=== PATIENT | female | born 1965 | race Caucasian/White ===

== ENCOUNTER → 2017-04-06 | Outpatient (CLI) | payer OTHER ==
[~2017-04-06] MED LIST: CETI10CA PO; CETI10TA17; CYAN100071 PO; CYCL10TA9 PO; ETHINYL ESTRADIOL; MULT-974 PO; NEBI5TAB8 PO; NORG1TAB16 PO; NORGESTIMATE; OMG1KC; RNT150T PO; TRAM-42 PO; VITA200C18
--- NOTE | 2017-04-06 19:31 | Diagnostic Imaging Report ---
Transabdominal and transvaginal pelvic ultrasound. INDICATION: Pelvic lesion seen in the right side of the pelvis based on MRI of the lumbar spine of 03/28/2017. FINDINGS: The uterus is 9.4 x 5 x 5.7 cm in size. The myometrium is slightly heterogeneous with no discrete mass seen. IUD is seen and appears to be in good position. The endometrial stripe is at the upper limits of normal in thickness at 1.6 cm. The right ovary is 3.1 x 3.8 x 3.8 cm and demonstrates a simple-appearing cyst measuring 2.6 cm which correlates with the MRI finding. Vascularity is noted with venous waveforms seen over the right ovary. The left ovary is not seen, likely obscured by bowel gas. IMPRESSION: The lesion in the right pelvis seen on MRI appears to correlate with a simple-appearing right ovarian cyst or dominant follicle. Dictated by: Dictated on workstation # [id number]
== END ==
LOC: RAD 15:25
PROVIDERS: ATTEND Family Medicine
DX: N83.9 Noninflammatory disorder of ovary, fallopian tube and broad ligament, unspecified (principal)
CPT/HCPCS: 76830; 76856

== ENCOUNTER 2018-01-25 09:00 | Outpatient (CLI) | payer OTHER ==
[~2018-01-25] VITALS: Ht 165.1 cm; Wt 95.3 kg
[2018-01-25] MEDS ORDERED: ESTR1TAB24 PO (09:02)
[2018-01-25] MEDS ORDERED: OMG1KC PO (09:02)
[2018-01-25] MEDS ORDERED: NEBI5TAB8 PO (09:02)
[2018-01-25] MEDS ORDERED: RANI150T11 PO (09:02)
[2018-01-25] MEDS ORDERED: CETI10TA17 PO (09:02)
[2018-01-25] MEDS ORDERED: NF-NORETH5 PO (09:02)
== END 2018-01-25 16:52 | disposition home or self-care (01) ==
LOC: PREOP 09:00
PROVIDERS: ATTEND Internal Medicine
DX: Z01.818 Encounter for other preprocedural examination (principal)

== ENCOUNTER 2018-01-27 07:14 | Day surgery (SDC) | payer OTHER ==
--- NOTE | 2018-01-10 13:16 | HISTORY AND PHYSICAL ---
DATE OF SERVICE: 01/27/2018 COLONOSCOPY HISTORY AND PHYSICAL HISTORY: The patient is a 52-year-old white female, referred by Dr. Tineo for her first screening colonoscopy. She was seen in the office on 01/09/2018. The patient is deemed to be of average risk for colon cancer. She is not aware of any family history for colon cancer or colon polyps. She has had no bowel habit change except for an episode of constipation following muscle relaxer for low back pain. Since that time, she has had a small amount of intermittent bright red blood per rectum, painless, small volume over the past several weeks. Energy level has been normal and she feels well. Weight has been stable. PAST MEDICAL HISTORY: Significant for hypertension and palpitations, which she reports has been under good control on Bystolic 5 mg daily. PAST SURGICAL HISTORY: Significant for breast reduction surgery 25 years ago, cholecystectomy in 2014 and 7 to 8 years ago bilateral hallux valgus surgery. FAMILY HISTORY: Father at age of 64 following surgery for diverticular disease. Mother is living at age of 76 with a history of hypertension and hypothyroidism. There is no family history for any form of malignancy that she is aware of. SOCIAL HISTORY: She is , employed with no past smoking history and rare alcohol intake. PHYSICAL EXAMINATION: GENERAL: Reveals a pleasant white female, who appears to be in no acute distress. VITAL SIGNS: Weight is 216 pounds, blood pressure 120/80, respiratory rate 16 and nonlabored. Heart rate 72 and regular. HEENT: Unremarkable. Sclerae nonicteric. NECK: Reveals no JVD, adenopathy or bruits. CHEST: Clear to auscultation. CARDIOVASCULAR: Reveals a regular rate and rhythm without murmur, S3 or S4. ABDOMEN: Soft, supple without mass or organomegaly. She does have some left lower quadrant pain to palpation without rebound or guarding. EXTREMITIES: Reveal no cyanosis, clubbing or edema. ASSESSMENT AND PLAN: The patient is set up for screening colonoscopy in early January. Due to family history of diverticular disease and some left lower quadrant discomfort to palpation, we will obtain anesthesia consultation for Diprivan administration. Prep instructions and Suprep kit were given and questions were answered. Her electronic medical record was reviewed. All in all, 45 minutes of my care time was spent with another 15 minutes of staff time setting the procedure and going over prep instructions. I thank you for the referral of this pleasant lady. Sincerely, Job ID: [id number] DocumentID: [id number] Dictated Date: 01/09/2018 16:51:30 Service Establishment Attendant Date: 01/09/2018 17:57:06 Dictated By: MARIBELL STINSON MD
[~2018-01-27] VITALS: Ht 165.1 cm; Wt 95.3 kg
[~2018-01-27 07:14] MED LIST changes: +CETI10TA17 PO; +ESTR1TAB24 PO; +NF-NORETH5 PO; +OMG1KC PO; +RANI150T11 PO
[2018-01-27] MEDS ORDERED: LACTATED RINGERS 1,000 ML IV STA (07:19)
[2018-01-27] MEDS ORDERED: LACTATED RINGERS 1,000 ML IV ONE (07:21)
[2018-01-27] MEDS ORDERED: PROPOFOL INJECTION 50 ML IV ONE (07:54)
[2018-01-27] MEDS ORDERED: MIDAZOLAM 2 MG/2 ML (VERSED) VIAL ONE (07:54)
[2018-01-27] MEDS ORDERED: LIDOCAINE JELLY 2% (XYLOCAINE) 5 ML TUBE ONE (07:58)
--- NOTE | 2018-01-27 08:00 | Pre-Op Note & Conscious Sedat ---
Pre-Operative Progress Note H&P Reviewed The H&P was reviewed, patient examined and no changes noted. Date H&P Reviewed: Jan 27, 2018 Time H&P Reviewed: 07:50 Conscious Sedation Pre-Proced ASA Class: 2 Airway Mallampati Classification: ([place]ak appropriate class) I. II. III, IV Lungs Heart ASA score ASA 1: a normal healthy patient ASA 2: a patient with a mild systemic disease (mid diabetes, controlled hypertension, obesity ASA 3: a patient with a severe systemic disease that limits activity (angina , COPD, prior Myocardial infarction) ASA 4: a patient with an incapacitating disease that is a constant threat to life (CHF, renal failure) ASA 5: a moribund patient not expected to survive 24 hrs. (ruptured aneurysm) ASA 6: a declared brain patient whose organs are being harvested. For emergent operations, add the letter E after the classification Grade 3 Sedation Plan: Analgesia, Amnesia, Plan communicated to team members, Discussed options with patient/fam, Discussed risks with patient/fam Note The patient is an appropriate candidate to undergo the planned procedure, sedation, and anesthesia. The patient immediately re-assessed prior to indication. MARIBELL STINSON MD Jan 27, 2018 08:00
[2018-01-27] MEDS ORDERED: proPOfol 200 MG/20 ML (DIPRIVAN) VIAL IV ONE (08:03)
[2018-01-27 08:18] VITALS: BP 131/86
[2018-01-27] MEDS ORDERED: LIDOCAINE JELLY 2% (XYLOCAINE) 5 ML TUBE TOP ONE (09:00)
[2018-01-27 09:05] VITALS: BP 116/74
[2018-01-27 09:40] VITALS: BP 116/74
[2018-01-27 09:55] VITALS: BP 116/74
--- NOTE | 2018-01-27 15:41 | OPERATIVE REPORT ---
DATE OF SERVICE: 01/27/2018 COLONOSCOPY SUMMARY INDICATION FOR THE PROCEDURE: Screening colonoscopy. REQUESTING PHYSICIAN: Deidra Tineo D.O. The patient was placed in the left lateral decubitus position. Prior to undergoing colonoscopy, digital rectal evaluation was performed. Anal sphincter tone was normal and the perianal reflexes intact. No abnormalities on additional inspection of the anal canal or distal rectal vault. The colonoscope was then inserted into the rectum under direct visualization and advanced to the cecum. The cecum was identified by the extent of the ileocecal valve and cecal strap. Photographic documentation was obtained. A careful inspection of the endoscope was withdrawn. The patient tolerated the procedure well under Diprivan anesthesia. FINDINGS: Bright red blood was noted in the rectum and sigmoid colon to the level of a large pedunculated friable, albeit nonulcerative polyp noted at 25 cm in the mid sigmoid colon. It was snared and removed in its entirety. It fragmented into 2 pieces, both being basketed, one piece being roughly at 1.5 cm, and the other one being roughly 2.5 cm in size. Both were submitted in their entirety. There was no evidence for remaining polyp tissue at the base and no significant blood loss from polypectomy. A diminutive 3-mm polyp was noted in the mid descending colon. It was biopsied and ablated and submitted for histopathology with no subsequent blood loss. The patient did have a moderate number of small sigmoid diverticulum and a moderate sized proximal ascending colonic diverticulum with no evidence for diverticulitis. Otherwise the transverse colon, hepatic flexure, ascending colon, and cecum were unremarkable. ASSESSMENTS: 1. Qrkp-dz-cvbazxmn diverticular disease was noted in the sigmoid colon and one moderate-sized proximal ascending diverticulum were present without evidence for diverticulitis. 2. A large friable pedunculated polyp on a short broad stalk was removed as noted above via snare. If there is no evidence for malignancy, we will be abdicating a 1-year surveillance interval, sooner if there is evidence for dysplasia or malignancy. We will await histopathology report. Thank you for the referral of this pleasant lady. Job ID: [id number] DocumentID: [id number] Dictated Date: 01/27/2018 10:22:08 Grain Elevator Agent Date: 01/27/2018 11:47:56 Dictated By: MARIBELL STINSON MD
== END 2018-01-27 10:00 | disposition home or self-care (01) ==
LOC: ENDO 07:14
PROVIDERS: ATTEND Internal Medicine
DX: Z12.11 Encounter for screening for malignant neoplasm of colon (principal); D12.4 Benign neoplasm of descending colon; D12.5 Benign neoplasm of sigmoid colon; K57.30 Diverticulosis of large intestine without perforation or abscess without bleeding; I10 Essential (primary) hypertension; R00.2 Palpitations; Z79.899 Other long term (current) drug therapy; Z83.79 Family history of other diseases of the digestive system
CPT/HCPCS: 84703

== ENCOUNTER → 2018-04-24 | Outpatient (CLI) | payer OTHER ==
[2018-04-24 15:52] LABS: ALANINE AMINOTRANSFERASE 23 U/L (0-55); ALBUMIN 4.5 GM/DL (3.2-4.5); ALKALINE PHOSPHATASE 51 U/L (40-136); BILIRUBIN,TOTAL 0.8 MG/DL (0.1-1.0); BUN/CREATININE RATIO 16; CALCIUM 9.2 MG/DL (8.5-10.1); CARBON DIOXIDE 23 MMOL/L (21-32); CHLORIDE 105 MMOL/L (98-107); CREATININE SERUM 0.82 MG/DL (0.60-1.30); GFR ESTIMATED > 60; GLUCOSE 84 MG/DL (70-105); SODIUM 138 MMOL/L (135-145); TOTAL PROTEIN 7.9 GM/DL (6.4-8.2)
--- NOTE | 2018-04-24 17:15 | Diagnostic Imaging Report ---
PROCEDURE: CT abdomen and pelvis without contrast. TECHNIQUE: Multiple contiguous axial images were obtained through the abdomen and pelvis without the use of intravenous contrast. INDICATION: Right lower quadrant and left lower quadrant pain. Post colonoscopy with polyp removed. COMPARISON: None. FINDINGS: The lung bases are clear. The heart is normal in size. There is no pericardial effusion. The liver is mildly heterogeneous, likely from fatty infiltration. No focal hepatic lesions are seen on this noncontrast exam. The spleen appears normal. The pancreas appears normal. The adrenal glands are normal. Cholecystectomy clips are noted. There is no hydronephrosis in the kidneys bilaterally. There is a simple appearing 2.5 cm cyst in the superior right kidney. The bowel loops are nondistended without evidence of obstruction. There is diverticulosis of the descending colon without findings of diverticulitis. No free fluid or free air is seen. No acute osseous abnormalities seen. There are degenerative changes in the spine. IMPRESSION: 1. Colonic diverticulosis without diverticulitis. No free fluid or free air seen. Dictated by: Dictated on workstation # [id number]
== END ==
LOC: RAD 15:15
PROVIDERS: ATTEND Family Medicine
DX: Z01.812 Encounter for preprocedural laboratory examination (principal); K57.30 Diverticulosis of large intestine without perforation or abscess without bleeding; N83.8 Other noninflammatory disorders of ovary, fallopian tube and broad ligament; N85.2 Hypertrophy of uterus; I10 Essential (primary) hypertension; E03.9 Hypothyroidism, unspecified; Z98.890 Other specified postprocedural states
CPT/HCPCS: 36415; 74176; 80053

== ENCOUNTER → 2018-04-26 | Outpatient (CLI) | payer OTHER ==
--- NOTE | 2018-04-26 21:48 | Diagnostic Imaging Report ---
INDICATION: Routine screening. COMPARISON: Prior mammograms from 04/06/2017 and 12/19/2015. EXAMINATION: 2D and 3D bilateral screening mammography was performed with CAD. FINDINGS: Scattered fibroglandular densities are identified, bilaterally. The parenchymal pattern appears stable. Right breast calcifications appear to be fairly stable. Fibronodular pattern is similar. No new mass or malignant appearing microcalcifications are seen. Axillae are unremarkable. IMPRESSION: No mammographic features suspicious for malignancy are identified. ACR BI-RADS Category 2: Benign findings. Result letter will be mailed to the patient. Note: At least 10% of breast cancer is not imaged by mammography. Dictated by: Dictated on workstation # [id number]
== END ==
LOC: RAD 13:55
PROVIDERS: ATTEND Family Medicine
DX: Z12.31 Encounter for screening mammogram for malignant neoplasm of breast (principal)
CPT/HCPCS: 77067

== ENCOUNTER 2018-05-11 07:32 | Outpatient (CLI) | payer OTHER ==
[~2018-05-11] VITALS: Ht 165.1 cm; Wt 90.7 kg
[~2018-05-11 07:32] MED LIST changes: -CHOL100048 PO; -DOCU100C37 PO; -OXYC1TAB87 PO
[2018-05-11 07:44] VITALS: BP 132/84
[2018-05-11] MEDS ORDERED: CHOL100048 PO (07:47)
[2018-05-11] MEDS ORDERED: OMG1KC PO (07:47)
== END 2018-05-11 10:13 ==
LOC: PREOP 07:32
PROVIDERS: ATTEND Obstetrics & Gynecology
DX: Z01.812 Encounter for preprocedural laboratory examination (principal); Z11.2 Encounter for screening for other bacterial diseases; N95.0 Postmenopausal bleeding; N85.2 Hypertrophy of uterus; D64.9 Anemia, unspecified
CPT/HCPCS: 86850; 86900; 86901; 87081

== ENCOUNTER → 2018-05-11 | Outpatient (CLI) | payer OTHER ==
[~2018-05-11] MED LIST changes: +CHOL100048 PO; +DOCU100C37 PO; +OXYC1TAB87 PO
[2018-05-11 08:23] LABS: BASOPHILS # (AUTO) 0.1 10^3/uL (0.0-0.1); BASOPHILS % (AUTO) 1 % (0-10); EOSINOPHILS # (AUTO) 0.2 10^3/uL (0.0-0.3); EOSINOPHILS % (AUTO) 3 % (0-10); HEMATOCRIT 45 % (35-52); HEMOGLOBIN 15.4 G/DL (11.5-16.0); LYMPHOCYTES # (AUTO) 1.6 X 10^3 (1.0-4.0); LYMPHOCYTES % (AUTO) 26 % (12-44); MEAN CORPUSCULAR HEMOGLOBIN 31 PG (25-34); MEAN CORPUSCULAR HGB CONC 35 G/DL (32-36); MEAN CORPUSCULAR VOLUME 90 FL (80-99); MEAN PLATELET VOLUME 11.6 FL (7.4-10.4); MONOCYTES # (AUTO) 0.5 X 10^3 (0.0-1.0); MONOCYTES % (AUTO) 9 % (0-12); NEUTROPHILS # (AUTO) 3.8 X 10^3 (1.8-7.8); NEUTROPHILS % (AUTO) 62 % (42-75); PLATELET COUNT 318 10^3/uL (130-400); RED BLOOD COUNT 4.99 10^6/uL (4.35-5.85); RED CELL DISTRIBUTION WIDTH 13.8 % (10.0-14.5); WHITE BLOOD COUNT 6.2 10^3/uL (4.3-11.0)
[2018-05-11 08:42] LABS: ALANINE AMINOTRANSFERASE 32 U/L (0-55); ALBUMIN 4.4 GM/DL (3.2-4.5); ALKALINE PHOSPHATASE 50 U/L (40-136); BILIRUBIN,TOTAL 1.1 MG/DL (0.1-1.0); BUN/CREATININE RATIO 17; CALCIUM 9.1 MG/DL (8.5-10.1); CARBON DIOXIDE 21 MMOL/L (21-32); CHLORIDE 106 MMOL/L (98-107); CHOLESTEROL 185 MG/DL (< 200); CREATININE SERUM 0.81 MG/DL (0.60-1.30); GFR ESTIMATED > 60; GLUCOSE 94 MG/DL (70-105); HDL CHOLESTEROL 38 MG/DL (40-60); SODIUM 138 MMOL/L (135-145); TOTAL PROTEIN 7.7 GM/DL (6.4-8.2); TRIGLYCERIDES 45 MG/DL (<150); VLDL CHOLESTEROL 9 MG/DL (5-40)
[2018-05-11 09:04] LABS: FREE T4 (FREE THYROXINE) 1.16 NG/DL (0.70-1.48)
== END ==
LOC: LAB 07:37
PROVIDERS: ATTEND Family Medicine
DX: Z00.00 Encounter for general adult medical examination without abnormal findings (principal); E03.9 Hypothyroidism, unspecified; I10 Essential (primary) hypertension; R10.9 Unspecified abdominal pain
CPT/HCPCS: 36415; 80053; 80061; 84439; 84443; 85025

== ENCOUNTER 2018-05-17 11:06 | Day surgery (SDC) | payer OTHER ==
--- NOTE | 2018-04-28 04:53 | HISTORY AND PHYSICAL ---
DATE OF SERVICE: PREOPERATIVE HISTORY AND PHYSICAL HISTORY OF PRESENT ILLNESS: The patient is a 53-year-old nulligravid white female, who had an MRI done and workup for back pain. She was noted to have an ovarian cyst and an exceedingly thick endometrial lining in spite of having a Mirena in the uterine cavity. She was having some spotting or breakthrough bleeding. She had begun bleeding like a period a week prior to presentation. 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 She had no problem with her bowel or bladder. She was taking estradiol and Provera for hormone replacement therapy since going through menopause. ALLERGIES: NONSTEROIDAL ANTI-INFLAMMATORIES, which cause hives and swelling. PAST MEDICAL HISTORY: Hypertension and history of angioedema. PAST SURGICAL HISTORY: Included a cholecystectomy and a bunionectomy in 2014. Cataract surgery in 2015. Breast reduction in 1997. OB HISTORY: Negative with a Pap smear in 2016. FAMILY HISTORY: Noncontributory. SOCIAL HISTORY: The patient is single. She is a nurse in the operating room. She denies drugs and tobacco use. She does drink occasionally socially. REVIEW OF SYSTEMS: As per the HPI. PHYSICAL EXAMINATION: HEENT: Normal. NECK: Supple, no lymphadenopathy and no thyromegaly. ABDOMEN: Soft, nontender, nondistended and mildly obese. EXTREMITIES: Show no clubbing or cyanosis. PELVIC: Deferred to the operating room. LABORATORY DATA: The patient's workup has included an endometrial biopsy, which showed weakly proliferative endometrium. Her ultrasound performed in clinic showed an irregular endometrial lining with a significant amount of fluid present in the endometrial cavity. The uterus was bulky and consistent with adenomyosis versus fibroids. The ovaries were quiet. ASSESSMENT AND PLAN: Postmenopausal bleeding in spite of hormone replacement therapy with the finding of an irregularly thickened endometrial cavity and questionable ovarian cyst. The patient has opted for definitive surgical treatment in the form of hysterectomy with bilateral salpingo-oophorectomy. The surgery has been scheduled for 05/17/2018. Surgical risks, complication, recovery and follow up have been fully discussed. All of her questions have been answered and she is prepared to proceed with that surgery. Job ID: [id number] DocumentID: [id number] Dictated Date: 04/25/2018 08:07:13 Tour Escort Date: 04/25/2018 08:44:06 Dictated By: SOMMER SALVADOR MD
[~2018-05-17] VITALS: Ht 165.1 cm; Wt 90.7 kg
[~2018-05-17 11:06] MED LIST changes: +CHOL100048 PO
[2018-05-17] MEDS ORDERED: ceFAZolin 1,000 MG/10 ML (ANCEF) VIAL ONE (11:30)
[2018-05-17] MEDS ORDERED: NS (IVPB) 50 ML ONE (11:31)
[2018-05-17] MEDS ORDERED: D5 LR IV SOLUTION 1,000 ML IV SCH (12:17)
[2018-05-17] MEDS ORDERED: ceFAZolin INJECTION 1,000 MG in NS (IVPB) 50 ML IV ONE (12:30)
[2018-05-17] MEDS ORDERED: ESTROGENS CONJ IV 25 MG/5 ML (PREMARIN) VIAL IVP ONE (12:30)
[2018-05-17] MEDS ORDERED: PROMETHAZINE INJ 25 MG/ML (PHENERGAN) AMP IM PRN (12:30)
[2018-05-17] MEDS ORDERED: ONDANSETRON 4 MG/2 ML (SDV) Z0FRAN IVP PRN (12:30)
[2018-05-17] MEDS ORDERED: MEPERIDINE (DEMEROL) INJ 100 MG/ML IM PRN (12:30)
[2018-05-17] MEDS ORDERED: WATER (STERILE) FOR INJ 10 ML BTL INJ ONE (12:30)
[2018-05-17] MEDS ORDERED: BUP/EPI 0.5% 1:200,000 (SENSORCAINE) 30 ML VIAL ONE (12:42)
[2018-05-17] MEDS ORDERED: fentaNYL INJECTION 100 MCG/2 ML AMP ONE ×2 (12:45→13:15)
[2018-05-17] MEDS ORDERED: MIDAZOLAM 2 MG/2 ML (VERSED) VIAL ONE (12:46)
[2018-05-17] MEDS: LACTATED RINGERS 1,000 ML IV PRN ×2 (12:49→13:30)
--- NOTE | 2018-05-17 12:49 | Progress Note-Pre Operative ---
Pre-Operative Progress Note H&P Reviewed The H&P was reviewed, patient examined and no changes noted. Date Seen by Provider: May 17, 2018 Time Seen by Provider: 12:48 Date H&P Reviewed: May 17, 2018 Time H&P Reviewed: 12:48 Pre-Operative Diagnosis: DUB/CPP/Menorrhagia/Pelvic mass SOMMER SALVADOR MD May 17, 2018 12:49
--- NOTE | 2018-05-17 12:50 | Progress Note-Post Operative ---
Post-Operative Progess Note Surgeon (s)/Assistant Superintendent (s) Surgeon SOMMER SALVADOR MD Assistant Superintendent: Chula Morrison Pre-Operative Diagnosis DUB/CPP/Menorrhagia/Pelvic mass Post-Operative Diagnosis Same with pathology pending Procedure & Operative Findings Date of Procedure 05/17/18 Procedure Performed/Findings TL H with BSO and with cystoscopy Anesthesia Type GETA Estimated Blood Loss Estimated blood loss (mL): Minimal Specimens/Packing Specimens Removed Uterus fallopian tubes and ovaries Packing: SOMMER Salcedo MD May 17, 2018 12:50
[2018-05-17] MEDS ORDERED: DOCU100C37 PO (12:54)
[2018-05-17] MEDS ORDERED: ESTR1TAB24 PO (12:54)
[2018-05-17] MEDS ORDERED: OXYC1TAB87 PO (12:54)
--- NOTE | 2018-05-17 12:55 | Discharge Instructions ---
Discharge Instructions Patient Instructions Patient Instructions: As directed Return to The Hospital For: as directed Activity & Diet Discharge Diet: No Restrictions Activity as Tolerated: No Orders-Post D/C & Referrals Follow Up Appt: Return to clinic on May 19 at 930 a.m. for staple removal Call to make follow up appt. for patient in 4 weeks. Activity: Rest for 24 hours, than as tolerated. Wound Care: May remove Band-Aid tomorrow. Replace as desired. Keep incisions clean and dry. Wash daily with soap and water. Please call in RX to patient pharmacy. Diet: As tolerated-Clear Liquids only if nauseated. Tomorrow, may shower or tub bathe as desired. No driving for 24 hours, no alcoholic beverages for 24 hours, and nothing per vagina (no tampons, douching, or intercourse) for 8 weeks. Patient to return to the clinic as soon as possible for: Temperature greater than 101F, Severe Pain, Foul discharge from incision or vagina, Excessive Bleeding (more than a period). SOMMER SALVADOR MD May 17, 2018 12:55
[2018-05-17] MEDS ORDERED: proPOfol 200 MG/20 ML (DIPRIVAN) VIAL IV ONE (14:16)
[2018-05-17] MEDS ORDERED: ONDANSETRON 4 MG/2 ML (SDV) Z0FRAN ONE (14:16)
[2018-05-17] MEDS ORDERED: SEVOFLURANE (ULTANE) 15 ML INHAL SOLN ONE ×5 (14:16→14:35)
[2018-05-17] MEDS ORDERED: DEXAMETHASONE 10 MG/ML (DECADRON) 1 ML VIAL ONE (14:16)
[2018-05-17] MEDS ORDERED: LIDOCAINE PF 2% 5 ML (XYLOCAINE) VIAL ONE (14:16)
[2018-05-17] MEDS ORDERED: ROCURONIUM 10 MG/ML 5 ML SYRINGE IV ONE (14:16)
[2018-05-17] MEDS ORDERED: INDIGO CARMINE 8 MG/ML 5 ML AMP ONE (14:22)
[2018-05-17] MEDS ORDERED: FUROSEMIDE 40 MG/4 ML INJ (LASIX) ONE (14:22)
[2018-05-17] MEDS ORDERED: PROMETHAZINE INJ 25 MG/ML (PHENERGAN) AMP ONE (15:10)
[2018-05-17] MEDS ORDERED: HYDROmorphone 2 MG/ML VIAL (DILAUDID) ONE (15:10)
[2018-05-17] MEDS ORDERED: fentaNYL INJECTION 100 MCG/2 ML AMP IVP ONE (15:15)
[2018-05-17] MEDS ORDERED: morphine INJ 10 MG/ML 1ML (SYR OR VIAL) IVP ONE (15:15)
[2018-05-17] MEDS ORDERED: HYDROmorphone 2 MG/ML VIAL (DILAUDID) IV ONE (15:15)
[2018-05-17] MEDS ORDERED: PROMETHAZINE INJ 25 MG/ML (PHENERGAN) AMP IVP ONE (15:15)
--- NOTE | 2018-05-17 15:56 | Anesthesia-General Post-Op ---
General Patient Condition Mental Status/LOC: Same as Preop Cardiovascular: Satisfactory Nausea/Vomiting: Absent Respiratory: Satisfactory Pain: Controlled Complications: Absent Post Op Complications Complications None Follow Up Care/Instructions Patient Instructions None needed. Anesthesia/Patient Condition Patient Condition Patient is doing well, no complaints, stable vital signs, no apparent adverse anesthesia problems. SARAH JACINTO DO May 17, 2018 15:56
[2018-05-17 16:00] VITALS: BP 145/95
[2018-05-17] MEDS ORDERED: D5 LR IV SOLUTION 1,000 ML IV ONE (16:08)
[2018-05-17] MEDS ORDERED: diphenhydrAMINE 50 MG/ML INJ (BENADRYL) IVP PRN (16:30)
[2018-05-17] MEDS ORDERED: diphenhydrAMINE 50 MG/ML INJ (BENADRYL) ONE (16:34)
[2018-05-17] MEDS: oxyCODONE/APAP 5/325MG (PERCOCET 5) TABLET PO PRN ×2 (18:23→22:45)
[2018-05-17 20:13] VITALS: BP 127/76
--- NOTE | 2018-05-17 23:48 | OPERATIVE REPORT ---
DATE OF SERVICE: 05/17/2018 PREOPERATIVE DIAGNOSES: Dysfunctional uterine bleeding, chronic pelvic pain, pelvic mass and menorrhagia. POSTOPERATIVE DIAGNOSES: Dysfunctional uterine bleeding, chronic pelvic pain, pelvic mass and menorrhagia with likely endometriosis. OPERATIVE PROCEDURE: Total laparoscopic hysterectomy, bilateral salpingo-oophorectomy and with cystoscopy. OPERATIVE DESCRIPTION: With the patient in supine position under satisfactory general anesthesia, she was prepped and draped in the usual fashion for abdominal and vaginal surgery after being repositioned in dorsal lithotomy position in the [facility] preoperatively for laparoscopic abdominal surgery and for vaginal surgery using robotic assistance. Bernal catheter was placed in the urinary bladder. Weighted speculum placed in posterior fornix of vagina, cervix exposed and grasped anteriorly with single tooth tenaculum. Uterus was sounded to 12.5 cm with uterine sound. Cervix then serially dilated with Chadd dilators to accommodate a Debora II manipulator, which was placed using a 6 mm x 8 cm uterine probe and a 30 mm colpotomy ring. Sutures of #1 Vicryl placed at 3 and 9 o'clock position of the cervix to affix the uterus to the manipulator. The patient was brought in low dorsal lithotomy position after the speculum and tenaculum were removed. A 12 mm incision was made 4 cm superior to the umbilicus. An attempt was made to place a Veress needle where that was unsuccessful. Two additional attempts were made to place the Veress needle at the umbilicus and that was unsuccessful, so a final attempt was at the Temple's point, which was successful. The abdomen was insufflated with 2.4 liters of carbon dioxide and the Veress needle was removed and a 12 mm Optiview laparoscopic port placed through the supraumbilical incision. The patient was placed in Trendelenburg allowing the bowel to spill partially above the pelvis. The 8 mm ports were placed through incisions of those sizes 9 cm lateral to the umbilicus. All incision sites were infiltrated with 0.25% Marcaine with epinephrine prior to incision. The patient was placed in steep Trendelenburg allowing the bowel to spill out of the pelvis. The da Andreas column was advanced on the patient and docked and then the procedure was initiated. I retired to the console after placing the operative instruments in the right and left lateral ports. With the vessel sealer on the right and a bipolar fenestrated grasper on the left, the pelvis was first examined. There was some evidence of endometriosis. Both ovaries were atretic appearing. The tubes were normal. The uterus was quite large, quite mottled and quite boggy consistent with adenomyosis and/or endometriosis or both. Laparoscope was rotated. The appendix was not readily apparent behind loops of small bowel. The laparoscope was brought back to the pelvis. The procedure was initiated by grasping and elevating the right tube and ovary. The right ureter could not seemed to peristalse through the peritoneum, so after dividing the IP ligament and the mesovarium, the round ligament, the broad ligament and finally the cardinal ligament on the right, the peritoneal leaves were opened on the right then allowed for dissection down to the ureter where it was retracted medially on the leaf of the broad ligament. It was seemed to peristalse there. Attention was now turned to the left pelvis. The left ureter could seemed to peristalse deep in the left pelvis with some difficulty. The left adnexa was treated in the same manner as the right. There were some adhesions on the left pelvic brim that were taken down and then the left tube and ovary round ligament obstructed tube and ovary were free in the same manner as the right. The leaves of the broad ligament were left open on the left to allow for direct visualization of the ureter, which was accomplished and then attention was turned to the anterior lower uterine segment using a monopolar shear in place of the vessel sealer. The anterior lower uterine segment peritoneum was divided. The bladder was carefully dissected down off lower uterine segment and colpotomy incision was started at the 12 o'clock position on the cervix that was continued circumferentially until the entire colpotomy was exposed. The uterus and extracted through the vagina with some difficulty as the uterus was quite large relative to the vagina. With the uterus removed the vaginal cuff was closed with two sutures of V-Loc barbed suture starting first from the right angle and continuing almost to the left and then from the left angle and finishing that closure and then reperitonealizing the cuff with the balance of the suture. Care was taken during sure inclusion of the uterine vessel pedicles on each side. The right ureter still seemed same peristalse behind leaf of the broad ligament. The left ureter could not easily be seen. Decision was made to go ahead with cystoscopy as I was comfortable that the ureters were intact. The procedure was terminated at this point, the operative instruments were removed under direct vision as were the ports. The abdomen was evacuated of insufflating gas in process of removing the ports. The skin incisions were stapled that the fascia was closed with a supraumbilical incision with cktktr-af-dilbe suture of 2-0 Vicryl. Speculum was placed in the vagina. There was some pulsatile bleeding on the midportion of the vaginal cuff. This was controlled with isrcxi-js-yoaxm suture of 2-0 Vicryl and they were two separations in the hymenal ring that were bleeding as well. These were sutured with isurzn-kk-hpbic sutures of 2-0 Vicryl complete hemostasis. Now, the patient had been given an amp of indigo carmine and 10 mg of Lasix just prior to finish the laparoscopic portion of procedure. The cystoscope was introduced and using an angled lens the right ureter orifice was seen easily and efflux was quickly noted. The left ureter orifice was then visualized and free efflux was noted on repeated inspection on that side. The procedure was terminated at this point. The Bernal catheter was replaced in the urinary bladder and left to dependent drainage. Sponge and needle counts correct. Estimated blood loss was minimal. The patient tolerated the procedure well and was uneventfully awakened from her general anesthesia and transferred to recovery room in stable condition with plans for routine postoperative care. Job ID: [id number] DocumentID: [id number] Dictated Date: 05/17/2018 14:52:22 Receptionist Clerk Date: 05/17/2018 23:47:12 Dictated By: SOMMER SALVADOR MD
[2018-05-18 00:28] VITALS: BP 109/69
[2018-05-18] MEDS: oxyCODONE/APAP 5/325MG (PERCOCET 5) TABLET PO PRN (04:52)
[2018-05-18 04:55] VITALS: BP 114/66
--- NOTE | 2018-05-18 08:03 | Progress Note-Standard ---
Standard Progress Note Progress Notes/Assess & Plan Date Seen by a Provider: May 18, 2018 Time Seen by a Provider: 08:02 Progress/Assessment & Plan This patient is without complaint. She is ambulating, voiding, tolerating oral intake well has to pain control and is requesting discharge home. Signs are stable. Patient is afebrile. Vital Signs 05/18/18 04:55 Temp 97.3 Pulse 72 Resp 18 B/P (MAP) 114/66 (82) Pulse Ox 98 O2 Delivery Room Air The abdomen is benign. Extremities show no clubbing cyanosis. There is no Homans sign. Assessment and plan postoperative day number 1 doing well plan is for discharge home clinic Final Diagnosis Dysfunction uterine bleeding/menorrhagia/chronic pelvic pain SOMMER SALVADOR MD May 18, 2018 08:03
[2018-05-18] MEDS ORDERED: ESTRADIOL 1 MG TAB (ESTRACE) PO SCH (09:00)
[2018-05-18] MEDS ORDERED: DOCUSATE SODIUM 100 MG (COLACE) CAP PO SCH (09:00)
[2018-05-18] MEDS ORDERED: BENZOCAINE/MENTHOL (DERMOPLAST) 56 ML CAN TP ONE (09:13)
[2018-05-18 09:17] VITALS: BP 132/77
== END 2018-05-18 09:33 | disposition home or self-care (01) ==
LOC: SDC 11:06 → WS 16:05 → SDC 05-18 09:33
PROVIDERS: ATTEND Obstetrics & Gynecology
DX: N95.0 Postmenopausal bleeding (principal); N80.0 Endometriosis of uterus; D25.9 Leiomyoma of uterus, unspecified; N72 Inflammatory disease of cervix uteri; I10 Essential (primary) hypertension; Z79.890 Hormone replacement therapy
CPT/HCPCS: 84703; 86850; 86900; 86901; 94664

== ENCOUNTER → 2019-07-25 | Outpatient (CLI) | payer OTHER ==
[~2019-07-25] MED LIST changes: +DOCU100C37 PO; +OXYC1TAB87 PO
--- NOTE | 2019-07-26 09:06 | Diagnostic Imaging Report ---
INDICATION: Routine screening. Comparison is made prior mammogram from 04/26/2018 and 04/06/2017. 2-D and 3-D bilateral screening mammography was performed with a Computer Aided Detection (CAD) system. 3-D tomosynthesis was also performed and reviewed. FINDINGS: Scattered fibroglandular densities are identified bilaterally. There are scattered benign calcifications bilaterally. There is a rounded density in the upper right breast posterior depth best seen on MLO view which appears new since prior exam. This may be laterally located. Additional views are recommended. Axillae are unremarkable. IMPRESSION: Right breast nodular density. Additional views recommended for further evaluation. ACR BI-RADS Category 0: Incomplete. (Needs additional imaging evaluation). Result letter will be mailed to the patient. Note: At least 10% of breast cancer is not imaged by mammography. Dictated by: Dictated on workstation # [id number]
== END ==
LOC: RAD 15:17
PROVIDERS: ATTEND Family Medicine
DX: Z12.31 Encounter for screening mammogram for malignant neoplasm of breast (principal); R92.8 Other abnormal and inconclusive findings on diagnostic imaging of breast
CPT/HCPCS: 77067

== ENCOUNTER → 2019-08-08 | Outpatient (CLI) | payer OTHER ==
--- NOTE | 2019-08-08 15:57 | Diagnostic Imaging Report ---
INDICATION: Right breast density. Patient presented for additional views. COMPARISON: Correlation is made with the recent screening study from 07/25/2019 as well as prior mammograms dating back to 2016. EXAMINATION: Unilateral right 2D and 3D diagnostic mammography was performed. This includes exaggerated CC and conventional 90 degree lateral views as well as spot compression ML and exaggerated CC views. FINDINGS: There is some minimal residual nodularity in the far posterior right breast. This appears to be in the outer portion based off of the tomographic images. This may represent a small cyst or intraparenchymal lymph node. This is approximately 11-13 cm from the nipple. Further evaluation with ultrasound is recommended. No other abnormality is seen. IMPRESSION: Persistent benign-appearing nodular density in the upper outer far posterior right breast. Further evaluation with ultrasound is recommended and will be performed today. ACR BI-RADS Category 0: Incomplete. (Needs additional imaging evaluation). Result letter will be mailed to the patient. Note: At least 10% of breast cancer is not imaged by mammography. Dictated by: Dictated on workstation # [id number]
--- NOTE | 2019-08-08 16:00 | Diagnostic Imaging Report ---
INDICATION: Right breast density. COMPARISON: Correlation is made with the diagnostic mammogram performed earlier this same day and the screening mammogram from 07/25/2019. TECHNIQUE: Sonographic interrogation of the upper outer right breast was performed. FINDINGS: There is a simple appearing cyst at the 9 o'clock location of the right breast approximately 10 cm from the nipple measuring 7 mm x 4 mm x 4 mm. This likely accounts for the density noted mammographically. No solid masses are detected. IMPRESSION: Simple cyst at the 9 o'clock location of the right breast, likely accounting for the mammographic density. The patient may return to routine annual screening mammography. ACR BI-RADS Category 2: Benign findings. Dictated by: Dictated on workstation # [id number]
== END ==
LOC: RAD 14:20
PROVIDERS: ATTEND Family Medicine
DX: N60.01 Solitary cyst of right breast (principal)

== ENCOUNTER → 2020-01-09 | Outpatient (CLI) | payer OTHER ==
[2020-01-11 13:01] LABS: MEAN CORPUSCULAR HEMOGLOBIN 30 PG (25-34); WHITE BLOOD COUNT 7.4 10^3/uL (4.3-11.0)
[2020-01-11 13:02] LABS: BASOPHILS % (AUTO) 1 % (0-10); EOSINOPHILS % (AUTO) 2 % (0-10); HEMATOCRIT 45 % (35-52); LYMPHOCYTES % (AUTO) 25 % (12-44); MEAN CORPUSCULAR HGB CONC 34 G/DL (32-36); MEAN CORPUSCULAR VOLUME 90 FL (80-99); MEAN PLATELET VOLUME 10.6 FL (7.4-10.4); MONOCYTES % (AUTO) 9 % (0-12); NEUTROPHILS % (AUTO) 63 % (42-75); PLATELET COUNT 321 10^3/uL (130-400); RED CELL DISTRIBUTION WIDTH 13.3 % (10.0-14.5)
[2020-01-11 13:03] LABS: BASOPHILS # (AUTO) 0.1 10^3/uL (0.0-0.1); EOSINOPHILS # (AUTO) 0.2 10^3/uL (0.0-0.3); LYMPHOCYTES # (AUTO) 1.9 X 10^3 (1.0-4.0); MONOCYTES # (AUTO) 0.7 X 10^3 (0.0-1.0); NEUTROPHILS # (AUTO) 4.7 X 10^3 (1.8-7.8)
[2020-01-11 13:16] LABS: SODIUM 140 MMOL/L (135-145)
[2020-01-11 13:17] LABS: BUN/CREATININE RATIO 19; CALCIUM 9.4 MG/DL (8.5-10.1); CARBON DIOXIDE 25 MMOL/L (21-32); CHLORIDE 106 MMOL/L (98-107); CREATININE SERUM 0.78 MG/DL (0.60-1.30); GFR ESTIMATED > 60; GLUCOSE 100 MG/DL (70-105); POTASSIUM 4.1 MMOL/L (3.6-5.0)
[2020-01-11 13:18] LABS: ALANINE AMINOTRANSFERASE 20 U/L (0-55); ALBUMIN 4.1 GM/DL (3.2-4.5); ALKALINE PHOSPHATASE 66 U/L (40-136); BILIRUBIN,TOTAL 0.6 MG/DL (0.1-1.0); CHOLESTEROL 188 MG/DL (< 200); FREE T4 (FREE THYROXINE) 0.91 NG/DL (0.70-1.48); HDL CHOLESTEROL 58 MG/DL (40-60); TOTAL PROTEIN 7.7 GM/DL (6.4-8.2); TRIGLYCERIDES 61 MG/DL (<150); VLDL CHOLESTEROL 12 MG/DL (5-40)
== END ==
LOC: LAB 08:34
PROVIDERS: ATTEND Family Medicine
DX: Z00.00 Encounter for general adult medical examination without abnormal findings (principal); I10 Essential (primary) hypertension; E04.1 Nontoxic single thyroid nodule; R53.83 Other fatigue; Z83.3 Family history of diabetes mellitus
CPT/HCPCS: 36415; 80053; 80061; 83036; 84439; 84443; 84480; 85025

== ENCOUNTER 2020-11-11 15:56 | Outpatient (RCR) | payer OTHER | END 2020-12-16 | disposition home or self-care (01) | PROVIDERS: ATTEND Nurse Practitioner | DX: M76.62 Achilles tendinitis, left leg (principal) ==

== ENCOUNTER → 2021-01-27 | Outpatient (CLI) | payer OTHER ==
--- NOTE | 2021-01-27 16:50 | Diagnostic Imaging Report ---
INDICATION: Routine screening. COMPARISON: 07/25/2019 and 04/26/2018. TECHNIQUE: 2D and 3D bilateral screening mammography was performed with CAD. FINDINGS: Scattered fibroglandular densities are identified bilaterally. There are numerous circumscribed nodules waxing and waning in size in both breasts, suggestive of cysts. Scattered benign calcifications are noted as well. No spiculated mass or malignant-appearing microcalcifications are seen. The axillae are unremarkable. IMPRESSION: No mammographic features suspicious for malignancy are identified. ACR BI-RADS Category 2: Benign findings. Result letter will be mailed to the patient. Note: At least 10% of breast cancer is not imaged by mammography. Dictated by: Dictated on workstation # [id number]
== END ==
LOC: RAD 15:30
PROVIDERS: ATTEND Family Medicine
DX: Z12.31 Encounter for screening mammogram for malignant neoplasm of breast (principal)
CPT/HCPCS: 77063; 77067

== ENCOUNTER → 2021-02-12 | Outpatient (CLI) | payer OTHER ==
[2021-02-12 06:55] LABS: BASOPHILS # (AUTO) 0.1 10^3/uL (0.0-0.1); BASOPHILS % (AUTO) 1 % (0-10); EOSINOPHILS # (AUTO) 0.3 10^3/uL (0.0-0.3); EOSINOPHILS % (AUTO) 4 % (0-10); HEMATOCRIT 45 % (35-52); LYMPHOCYTES # (AUTO) 2.2 10^3/uL (1.0-4.0); LYMPHOCYTES % (AUTO) 30 % (12-44); MEAN CORPUSCULAR HEMOGLOBIN 30 pg (25-34); MEAN CORPUSCULAR HGB CONC 33 g/dL (32-36); MEAN CORPUSCULAR VOLUME 91 fL (80-99); MEAN PLATELET VOLUME 10.5 fL (9.0-12.2); MONOCYTES # (AUTO) 0.6 10^3/uL (0.0-1.0); MONOCYTES % (AUTO) 9 % (0-12); NEUTROPHILS # (AUTO) 4.1 10^3/uL (1.8-7.8); NEUTROPHILS % (AUTO) 56 % (42-75); PLATELET COUNT 306 10^3/uL (130-400); WHITE BLOOD COUNT 7.3 10^3/uL (4.3-11.0)
[2021-02-12 07:36] LABS: ALBUMIN 3.9 GM/DL (3.2-4.5); BILIRUBIN,TOTAL 0.7 MG/DL (0.1-1.0); CALCIUM 9.3 MG/DL (8.5-10.1); CREATININE SERUM 0.77 MG/DL (0.60-1.30); POTASSIUM 4.8 MMOL/L (3.6-5.0); TOTAL PROTEIN 7.5 GM/DL (6.4-8.2)
== END ==
LOC: SDC 06:35
PROVIDERS: ATTEND Family Medicine
DX: Z00.00 Encounter for general adult medical examination without abnormal findings (principal); Z13.6 Encounter for screening for cardiovascular disorders; I10 Essential (primary) hypertension
CPT/HCPCS: 36415; 80053; 80061; 84439; 84443; 85025

== ENCOUNTER → 2021-07-17 | Outpatient (REF) ==
--- NOTE | 2021-07-17 11:22 | Diagnostic Imaging Report ---
Indication: Back injury from slipping on ice AP lateral views of lumbar spine shows mild degenerative disc change with disc space narrowing at L3-L4. The other disc levels are unremarkable. There is no fracture. Alignment is normal. IMPRESSION: Mild degenerative disc changes L3-L4. No acute abnormality seen. Dictated by: Dictated on workstation # [id number]
--- NOTE | 2021-07-17 11:23 | Diagnostic Imaging Report ---
Indication: Neck injury from a fall Cervical spine AP lateral views of the cervical spine shows normal vertebral body height and alignment. There is disc space narrowing C4-C5, C5-C6 and C6-C7. There are some hypertrophic changes of the uncovertebral joints at C3-C4. IMPRESSION: Degenerative changes of the cervical spine. No fracture or acute abnormality seen. Dictated by: Dictated on workstation # [id number]
== END ==
LOC: OCC 09:12
PROVIDERS: ATTEND Family Medicine
DX: M47.816 Spondylosis without myelopathy or radiculopathy, lumbar region (principal); M47.812 Spondylosis without myelopathy or radiculopathy, cervical region
CPT/HCPCS: 72040; 72100

== ENCOUNTER → 2022-07-29 | Outpatient (CLI) | payer OTHER ==
--- NOTE | 2022-07-29 18:12 | Diagnostic Imaging Report ---
3D bilateral screening mammogram with CAD. This study was compared to the prior exams of 01/27/2021, 07/25/2019 and 04/26/2018. At this time there are no current complaints. The fibroglandular tissue in both breasts is heterogeneously dense. This does limit the sensitivity of this exam. The waxing and waning nodules in both breasts suggesting cysts seen previously are again visualized. This includes the dense nodule in the retroareolar region of the right breast at middle depth. There is no primary or secondary sign of malignancy noted. Impression: 1. There is no evidence for malignancy. 2. The patient should have her annual bilateral screening mammogram on schedule in July of 2023. ACR BI-RADS Category 1: Negative. Result letter will be mailed to the patient. Note: At least 10% of breast cancer is not imaged by mammography. Dictated by: Dictated on workstation # [id number]
== END ==
LOC: RAD 15:07
PROVIDERS: ATTEND Family Medicine
DX: Z12.31 Encounter for screening mammogram for malignant neoplasm of breast (principal)
CPT/HCPCS: 77063; 77067

== ENCOUNTER → 2022-09-06 | Outpatient (CLI) | payer OTHER ==
[2022-09-06 07:16] LABS: BASOPHILS # (AUTO) 0.1 10^3/uL (0.0-0.1); BASOPHILS % (AUTO) 1 % (0-10); EOSINOPHILS # (AUTO) 0.2 10^3/uL (0.0-0.3); EOSINOPHILS % (AUTO) 3 % (0-10); HEMATOCRIT 45 % (35-52); LYMPHOCYTES # (AUTO) 2.4 10^3/uL (1.0-4.0); LYMPHOCYTES % (AUTO) 32 % (12-44); MEAN CORPUSCULAR HEMOGLOBIN 30 pg (25-34); MEAN CORPUSCULAR HGB CONC 33 g/dL (32-36); MEAN CORPUSCULAR VOLUME 91 fL (80-99); MEAN PLATELET VOLUME 10.3 fL (9.0-12.2); MONOCYTES # (AUTO) 0.6 10^3/uL (0.0-1.0); MONOCYTES % (AUTO) 8 % (0-12); NEUTROPHILS # (AUTO) 4.2 10^3/uL (1.8-7.8); NEUTROPHILS % (AUTO) 56 % (42-75); PLATELET COUNT 300 10^3/uL (130-400); WHITE BLOOD COUNT 7.6 10^3/uL (4.3-11.0)
[2022-09-06 07:24] LABS: CALCIUM 8.8 MG/DL (8.5-10.1)
[2022-09-06 07:25] LABS: TOTAL PROTEIN 7.4 GM/DL (6.4-8.2)
[2022-09-06 07:27] LABS: BILIRUBIN,TOTAL 0.6 MG/DL (0.1-1.0)
[2022-09-06 07:29] LABS: CREATININE SERUM 0.83 MG/DL (0.60-1.30)
[2022-09-06 07:53] LABS: FREE T4 (FREE THYROXINE) 0.9 NG/DL (0.70-1.48)
== END ==
LOC: LAB 07:03
PROVIDERS: ATTEND Family Medicine
DX: Z00.00 Encounter for general adult medical examination without abnormal findings (principal); I10 Essential (primary) hypertension; E78.2 Mixed hyperlipidemia
CPT/HCPCS: 36415; 80053; 80061; 82306; 83036; 84439; 84443; 85025

== ENCOUNTER 2023-01-19 15:59 | Outpatient (RCR) | payer OTHER | END 2023-01-20 | disposition home or self-care (01) | PROVIDERS: ATTEND Nurse Practitioner | DX: M77.51 Other enthesopathy of right foot and ankle (principal); I10 Essential (primary) hypertension ==

== ENCOUNTER 2023-02-18 13:52 | Outpatient (RCR) | payer OTHER | END 2023-02-19 | disposition home or self-care (01) | PROVIDERS: ATTEND Nurse Practitioner | DX: M77.51 Other enthesopathy of right foot and ankle (principal) ==

== ENCOUNTER 2023-03-17 15:36 | Outpatient (RCR) | payer OTHER ==
[~2023-03-17 15:36] MED LIST changes: +NEBI5TAB2 PO
== END 2023-03-22 | disposition home or self-care (01) ==
PROVIDERS: ATTEND Nurse Practitioner
DX: M77.51 Other enthesopathy of right foot and ankle (principal)

== ENCOUNTER 2023-04-04 15:04 | Outpatient (RCR) | payer OTHER | END 2023-04-21 | disposition home or self-care (01) | PROVIDERS: ATTEND Nurse Practitioner | DX: M77.51 Other enthesopathy of right foot and ankle (principal); I10 Essential (primary) hypertension ==